=== PATIENT | female | born 1995 | race African-American/Black ===

== ENCOUNTER 2017-11-18 13:59 | Emergency (ER) | payer OTHER ==
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
[2017-11-18] MEDS ORDERED: Ibuprofen 800 MG TAB ONE (15:24)
== END 2017-11-18 15:31 | disposition home or self-care (01) ==
LOC: ERS 13:59
DX: S16.1XXA Strain of muscle, fascia and tendon at neck level, initial encounter (principal); J45.909 Unspecified asthma, uncomplicated; V43.52XA Car driver injured in collision with other type car in traffic accident, initial encounter; W22.11XA Striking against or struck by driver side automobile airbag, initial encounter
CPT/HCPCS: 71045; 72125